=== PATIENT | male | born 1980 ===

== ENCOUNTER 2017-07-01 10:26 | Day surgery (SDC) | payer MEDICAID ==
[2017-07-01 10:43] VITALS: BMI 29.2
[2017-07-01] MEDS ORDERED: Dextrose 5%/0.45% NS 1,000 ML IV SCH (12:15)
[2017-07-01] MEDS ORDERED: Propofol 10 mg/ml Inj (20 ML) ONE (12:50)
[2017-07-01] MEDS ORDERED: Midazolam 2 MG/2 ML VIAL ONE (12:50)
[2017-07-01] MEDS ORDERED: Lidocaine 1% Inj (20ml) ONE (13:23)
[2017-07-01] MEDS ORDERED: Absorbable Gelatin Sponge Size 12-7 ONE (13:23)
[2017-07-01] MEDS ORDERED: Dextrose 5%/0.45% NS 1,000 ML IV ONE (13:35)
[2017-07-01 13:43] VITALS: O2SAT 100
--- NOTE | 2017-07-01 14:00 | CP.SDSHP ---
Same Day Surgery H & P - History Proposed Procedure: US guided renal biopsy Pre-Op Diagnosis: Proteinuria - Allergies Allergies: Allergies No Known Allergies Allergy (Verified 07/01/17 10:42) - Physical Exam Vital Signs: Vital Signs 07/01/17 07/01/17 07/01/17 11:06 13:35 13:42 Temperature 98.1 F 98.2 F 98 F Pulse Rate 73 72 69 Respiratory 18 18 18 Rate Blood Pressure 116/76 149/73 134/81 O2 Sat by Pulse 98 100 100 Oximetry Mental Status: Alert & Oriented x3 Neuro: WNL Heart: WNL - Impression Impression: Pt with proteinuria referred for renal biopsy. Pt. Evaluated Today:Candidate for Anesthesia & Procedure: Yes (ASA 2 Malampati 3) - Date & Time Date: 07/01/17 Time: 13:30 Short Stay Discharge - Short Stay Discharge Admitting Diagnosis/Reason for Visit: N18.3 Referrals: Darci Estrada MD [Primary Care Provider] -
--- NOTE | 2017-07-01 14:04 | PCM.SURG1 ---
Surgeon's Initial Post Op Note - Surgeon's Notes Surgeon: Flaco Ward MD Machine Pie Maker: NONE Type of Anesthesia: IV Sedation Pre-Operative Diagnosis: Protenuria Operative Findings: US of left kidney showed an unremarkable kidney. Post-Operative Diagnosis: Proteinuria Operation Performed: US guided left renal biopsy. Specimen/Specimens Removed: 18 gauge core x 3 Estimated Blood Loss: EBL {In ML}: 0 Blood Products Given: N/A Drains Used: No Drains Post-Op Condition: Good Date of Surgery/Procedure: 07/01/17 Time of Surgery/Procedure: 13:50
[2017-07-01 14:17] VITALS: RESP 18
[2017-07-01 15:42] VITALS: BP 112/75; PULSE 68; TEMP 97.8
--- NOTE | 2017-07-02 13:25 | US ---
PROCEDURE: Date of procedure: 07/01/2017 Procedure: Ultrasound-guided left renal biopsy, CPT 27914 Ultrasound guidance for biopsy, [address] HISTORY: Proteinuria TECHNIQUE: Following informed consent and procedure time-out, the patient was placed prone on the interventional table and a limited ultrasound showed slightly echogenic left kidney consistent with medical renal disease. There is no hydronephrosis or mass. The patient left back was prepped and draped in the usual sterile fashion. After patient sedated by the anesthesiologist and the skin anesthetized with lidocaine, an 18 gauge core needle was advanced percutaneously towards the lower pole cortex. Upon confirmation of needle position, three-18 gauge core specimens were obtained and sent for routine pathology. The biopsy tract was then embolized with Gelfoam. A post biopsy ultrasound showed no hematoma. There were no immediate complications. IMPRESSION: Ultrasound-guided left renal biopsy.
== END 2017-07-01 16:35 | disposition home or self-care (01) ==
LOC: H.OPSURG 10:26
PROVIDERS: ATTEND Specialist
DX: I12.9 Hypertensive chronic kidney disease with stage 1 through stage 4 chronic kidney disease, or unspecified chronic kidney disease (principal); N18.3 Chronic kidney disease, stage 3 (moderate); E11.22 Type 2 diabetes mellitus with diabetic chronic kidney disease
CPT/HCPCS: 50200; 82948; 88307; J2250; J3010; J7042